=== PATIENT | female | born 1970 | race Caucasian/White ===

== ENCOUNTER 2019-03-08 16:34 | Observation (INO) ==
[2019-03-08] MEDS ORDERED: LACTATED RINGERS IV ONE (16:54)
[2019-03-08] MEDS ORDERED: DEXTROSE IV ONE (16:54)
[2019-03-08] MEDS: D5 LR 1,000 ML IV SCH ×2 (17:35→19:36)
[2019-03-08 17:45] LABS: BASO# 0.01 X1000 (0.0-0.2); BASO% 0.1 % (0.0-0.8); EOS# 0.08 X1000 (0.0-0.7); EOS% 0.9 % (0.0-10.0); HEMOGLOBIN 13.4 g/dL (12.0-16.0); IMM GRAN# 0.02 X1000 (0.0-0.04); IMM GRAN% 0.2 % (0.0-0.5); LYMPH# 1.51 X1000 (1.2-3.4); LYMPH% 16.4 % (20.5-51.1); MCH 29.3 PG (27-31); MCHC 32.7 g/dL (33-37); MCV 89.5 FL (81-99); MONO# 0.41 X1000 (0.11-0.59); MONO% 4.4 % (1.7-9.3); MPV 11.5 FL (7.4-10.4); NEUT# 7.19 X1000 (1.4-6.5); PLT 213 X1000 (130-400); RBC 4.58 XMIL (4.2-5.4); RDW 12.9 % (11.5-14.5); WBC 9.22 X1000 (4.8-10.8)
--- NOTE | 2019-03-08 18:25 | Diag Imaging Result Doc PS360 ---
EXAM: ABDOMEN FLAT/UPRIGHT HISTORY: ABD PAIN TECHNIQUE: Three views COMPARISON: None. FINDINGS: The gallbladder has been removed. There are also surgical clips in the left upper quadrant. Nonspecific bowel gas pattern. No free air beneath the diaphragm. No organomegaly. IMPRESSION: No definite abnormality Electronically signed by Singh Sheridan 03/08/2019 6:23 PM
[2019-03-08 18:38] LABS: AGAP 17; ALB/GLOB RATIO 1.8; ALBUMIN 4.4 g/dL (3.5-5.0); ALKALINE PHOSPHATASE 90 U/L (32-104); BUN 7 mg/dL (8-22); CALCIUM 10.1 mg/dL (8.8-10.2); CHLORIDE 98 mmol/L (98-107); COSMO 274; CREATININE 0.7 mg/dL (0.5-0.9); ESTIMATED GFR > 60; GLUCOSE 75 mg/dL (70-104); GOT 20 U/L (10-30); GPT 14 U/L (10-36); POTASSIUM 3.3 mmol/L (3.5-5.1); SODIUM 139 mmol/L (136-145); TCO2 24 mmol/L (25-35); TOTAL BILIRUBIN 0.77 mg/dL (0.20-1.00); TOTAL PROTEIN 6.8 g/dL (6.3-8.3)
[2019-03-08] MEDS ORDERED: SODIUM CHLORIDE 0.9% INJ PRN (19:15)
[2019-03-08] MEDS: ZOFRAN IV SCH (19:36)
[2019-03-08] MEDS: PHENERGAN IV SCH (19:36)
[2019-03-08] MEDS: D5 1/2 NS + KCL 20 MEQ 1,000 ML IV SCH (19:36)
[2019-03-09] MEDS: ZOFRAN IV SCH ×6 (01:07→20:59)
[2019-03-09] MEDS: PHENERGAN IV SCH ×2 (01:07→10:28)
[2019-03-09] MEDS: D5 1/2 NS + KCL 20 MEQ 1,000 ML IV SCH ×3 (05:39→20:59)
[2019-03-09 07:47] LABS: EOS# 0.09 X1000 (0.0-0.7); EOS% 1.7 % (0.0-10.0); HEMATOCRIT 36.4 % (37.0-47.0); HEMOGLOBIN 11.7 g/dL (12.0-16.0); LYMPH# 1.77 X1000 (1.2-3.4); MCH 29.3 PG (27-31); MCHC 32.1 g/dL (33-37); MCV 91.2 FL (81-99); MONO# 0.38 X1000 (0.11-0.59); MONO% 7.1 % (1.7-9.3); MPV 11.6 FL (7.4-10.4); NEUT# 3.12 X1000 (1.4-6.5); NEUT% 58.2 % (42.2-75.2); PLT 166 X1000 (130-400); RBC 3.99 XMIL (4.2-5.4); WBC 5.36 X1000 (4.8-10.8)
[2019-03-09 08:30] LABS: AGAP 15; BUN 4 mg/dL (8-22); CALCIUM 8.8 mg/dL (8.8-10.2); CHLORIDE 105 mmol/L (98-107); COSMO 280; CREATININE 0.7 mg/dL (0.5-0.9); ESTIMATED GFR > 60; GLUCOSE 102 mg/dL (70-104); POTASSIUM 3.4 mmol/L (3.5-5.1); SODIUM 142 mmol/L (136-145); TCO2 22 mmol/L (25-35)
[2019-03-09] MEDS ORDERED: PHENERGAN IM PRN (10:24)
[2019-03-09] MEDS ORDERED: PHENERGAN IV PRN (10:29)
[2019-03-09] MEDS ORDERED: SODIUM CHLORIDE 0.9% INJ PRN (10:29)
[2019-03-09] MEDS: VITAMIN D PO SCH (11:39)
[2019-03-10] MEDS: ZOFRAN IV SCH ×3 (00:57→08:46)
[2019-03-10] MEDS: D5 1/2 NS + KCL 20 MEQ 1,000 ML IV SCH ×2 (04:33→08:03)
[2019-03-10 07:28] VITALS: BP 115/68
[2019-03-10] MEDS: VITAMIN D PO SCH (08:46)
== END 2019-03-10 11:17 | disposition home or self-care (01) | DRG 641 ==
LOC: ED 16:34 → 3N 18:58 → INTOOBSV 18:58
PROVIDERS: ADMIT Surgery; ATTEND Surgery